=== PATIENT | female | born 1960 | race Caucasian/White ===

== ENCOUNTER 2024-05-09 07:27 | Emergency (ER) | payer OTHER | END 2024-05-09 08:25 | disposition home or self-care (01) | LOC: JP.ED 07:27 | DX: M62.838 Other muscle spasm (principal); Z88.0 Allergy status to penicillin; Z79.899 Other long term (current) drug therapy; Z79.84 Long term (current) use of oral hypoglycemic drugs | CPT/HCPCS: 99283; 99284 ==